=== PATIENT | male | born 1960 | race Hispanic/Latino ===

== ENCOUNTER → 2019-08-29 | Day surgery (SDC) | payer OTHER ==
[~2019-08-29] MED LIST: ACETAMINOPHEN 1000 MG/100 ML 100 ML IV ONE; BUPIVACAINE 0.25%/EPI 30ML SDV INJ ONE; DEXAMETHASONE SOD PHOS INJ 4 MG/ML VIAL ONE; EPHEDRINE SULFATE INJ 50 MG/10 ML SYR ONE; FENTANYL CITRATE/PF 100MCG/2 ML INJ ONE; GLYCOPYRROLATE INJ 1MG/ 5 ML SYR ONE; KETOROLAC TROMETHAMINE 30 MG/ML VIAL ONE; LIDOCAINE HCL 1% LOCAL INJ 20 ML VIAL ONE; LIDOCAINE HCL 2% LOCAL INJ 5 ML SDV VIAL INJ ONE; LISINOPRIL40 MG PO; MIDAZOLAM HCL 2 MG/2 ML VIAL ONE; ONDANSETRON HCL INJ 2MG/ML 2ML 2 MG/ML VIAL ONE; PROPOFOL IV EMULSION 10 MG/ML 20 ML VIAL ONE; SEVOFLURANE INHAL SOLN 250 ML PEN BTL ONE; SIMVASTATIN20 MG PO
[2019-08-29 10:33] LABS: BASOPHILS % 0.5 % (0.0-1.0); EOSINOPHILS # (AUTO) 0.1 (0.0-0.4); EOSINOPHILS % 0.9 % (0.0-6.0); HEMATOCRIT 46.3 % (38.2-49.6); HEMOGLOBIN 16.2 g/dL (14.0-18.0); LYMPHOCYTES # (AUTO) 1.7 (1.0-3.2); LYMPHOCYTES % 22.4 % (18.0-39.1); MEAN CORPUSCULAR HEMOGLOBIN 31.3 pg (28-32); MEAN CORPUSCULAR VOLUME 89.4 fL (81-99); MONOCYTES # (AUTO) 0.5 (0.2-0.8); MONOCYTES % 6.2 % (4.4-11.3); NEUTROPHILS # (AUTO) 5.4 (2.1-6.9); NEUTROPHILS % 69.6 % (38.7-80.0); PLATELET COUNT 245 x10e3/uL (140-360); RED BLOOD COUNT 5.18 x10e6/uL (4.3-5.7); RED CELL DISTRIBUTION WIDTH 12.7 % (11.7-14.4)
[2019-08-29 10:53] LABS: ALANINE AMINOTRANSFERASE 21 IU/L (0-55); ALBUMIN 4.3 g/dL (3.5-5.0); ALKALINE PHOSPHATASE 65 IU/L (40-150); ANION GAP 13.9 mmol/L (8-16); BLOOD UREA NITROGEN 11 mg/dL (7-26); BUN/CREATININE RATIO 10 (6-25); CALCIUM 10.4 mg/dL (8.4-10.2); CARBON DIOXIDE 25 mmol/L (22-29); CHLORIDE 104 mmol/L (98-107); CREATININE, SERUM 1.09 mg/dL (0.72-1.25); EST GLOMERULAR FILTRATION RATE > 60 ML/MIN (60-); GLUCOSE 102 mg/dL (74-118); POTASSIUM 3.9 mmol/L (3.5-5.1); SODIUM 139 mmol/L (136-145)
--- NOTE | 2019-08-29 14:06 | Operative Report ---
DATE OF PROCEDURE: 08/29/2019 SURGEON: Bryan Enriquez MD PREOPERATIVE DIAGNOSIS: Recurrent left inguinal hernia. POSTOPERATIVE DIAGNOSIS: Recurrent left inguinal hernia. OPERATION PERFORMED: Repair of recurrent left inguinal hernia with Prolene Hernia System. ANESTHESIA: General. COMPLICATIONS: None. ESTIMATED BLOOD LOSS: Minimal. DESCRIPTION OF PROCEDURE: With the patient lying in bed in the supine position under general anesthesia, the abdomen was prepped with Betadine solution and draped in the usual manner. A left inguinal incision was made. It was carried down through the subcutaneous tissue down to the external oblique aponeurosis. The external oblique was opened along the length of its fibers. There was quite a bit of scarring from the patient's previous surgery. Nonetheless, the fascial planes were developed. The cord was then mobilized and retracted coming through the internal ring was a hernia sac, which was slowly and carefully from the surrounding structures and the hernia sac was then imbricated and reduced back to the intraabdominal cavity. After this was done, the preperitoneal space was then entered right through the internal ring and a pocket was created without any difficulty. A large Prolene Hernia System was then placed in the preperitoneal space and the underlay patch was deployed without any problems. The overlay patch was then placed over the floor and split inferolaterally to allow for passage of the cord. The mesh was then sutured to the conjoined tendon and the inguinal ligament using interrupted sutures of 2-0 Vicryl. The whole area was then thoroughly irrigated. Perfect hemostasis was ascertained. All layers were infiltrated on the way out with solution of 0.25% Marcaine and 1% lidocaine mixed in equal parts. The external oblique aponeurosis was then closed with a running suture of 2-0 Vicryl. The subcutaneous tissue was approximated with 3-0 plain and the skin was closed with clips. A dressing was applied. The sponge, lap, and needle count was correct. The patient tolerated the procedure well and returned to the recovery room in stable condition. Bryan Enriquez MD JLR/MODL /[id number]
[2019-08-29 14:25] VITALS: BP 138/90
== END | disposition home or self-care (01) ==
LOC: OR 08:22
PROVIDERS: ATTEND Surgery
DX: K40.91 Unilateral inguinal hernia, without obstruction or gangrene, recurrent (principal); Z01.810 Encounter for preprocedural cardiovascular examination; Z01.812 Encounter for preprocedural laboratory examination; I10 Essential (primary) hypertension; E78.5 Hyperlipidemia, unspecified
CPT/HCPCS: 36415; 49520; 80053; 85025; 93005; C1781; J0131; J1100; J1885; J2001 ×2; J2250; J2405; J2704; J3010; J3490